=== PATIENT | female | born 1990 | race Hispanic/Latino ===

== ENCOUNTER 2019-10-21 14:12 | Emergency (ER) | payer MEDICAID, OTHER ==
[~2019-10-21 14:12] MED LIST: ACET1TAB12 PO; TYL3 PO
[2019-10-21] MEDS ORDERED: ACETAMINOPHEN EXTRA STRENGTH 500 MG TABLET ONE (16:01)
== END 2019-10-21 16:59 | disposition home or self-care (01) ==
LOC: EDH 14:12
DX: S93.402A Sprain of unspecified ligament of left ankle, initial encounter (principal); Z98.890 Other specified postprocedural states; X58.XXXA Exposure to other specified factors, initial encounter; Y93.01 Activity, walking, marching and hiking; Y92.098 Other place in other non-institutional residence as the place of occurrence of the external cause; Y99.8 Other external cause status
CPT/HCPCS: 73610; 81025

== ENCOUNTER 2021-04-06 16:11 | Emergency (ER) | payer MEDICAID ==
[~2021-04-06] VITALS: Ht 154.9 cm; Wt 86.2 kg
[2021-04-06 16:13] VITALS: BP 127/87
[2021-04-06] MEDS ORDERED: ACET1TAB25 PO (19:00)
[2021-04-06] MEDS ORDERED: ACETAMINOPHEN WITH CODEINE 1 TAB TAB PO ONE (19:00)
[2021-04-06] MEDS ORDERED: AMOX-429 PO (19:00)
[2021-04-06] MEDS ORDERED: CEFTRIAXONE 1G VIAL IM ONE (19:00)
[2021-04-06] MEDS ORDERED: CORTSOL AD (19:00)
[2021-04-06 20:10] VITALS: BP 122/78
== END 2021-04-06 22:10 | disposition home or self-care (01) ==
LOC: EDH 16:11
DX: H65.02 Acute serous otitis media, left ear (principal); Z79.899 Other long term (current) drug therapy
CPT/HCPCS: 96372; 99283; J0696